=== PATIENT | female | born 2000 | race Caucasian/White ===

== ENCOUNTER 2021-06-27 20:08 | Emergency (ER) | payer MEDICAID ==
[2021-06-27 21:09] LABS: BARBITURATE SCREEN,URINE NEGATIVE (NEGATIVE); BENZODIAZEPINES SCREEN,URINE NEGATIVE (NEGATIVE); BUPRENORPHINE SCREEN,URINE NEGATIVE (NEGATIVE); METHAMPHETAMINE SCREEN, URINE NEGATIVE (NEGATIVE); THC SCREEN,URINE 50 NG/ML POSITIVE (NEGATIVE)
[2021-06-27 21:30] LABS: CHLORIDE,CL 102 mmol/L (98-107); SODIUM,NA 137 mmol/L (136-145)
[2021-06-27 21:32] LABS: ANION GAP 10.7 mmol/L (5-15)
== END 2021-06-27 21:45 | disposition home or self-care (01) ==
LOC: EDBD 20:08 → VM.ED 20:08
DX: R42 Dizziness and giddiness (principal); R00.2 Palpitations; Z72.0 Tobacco use
CPT/HCPCS: 36415; 80053; 80305-QW; 81003; 81025; 84484; 85025; 86140; 99285-25

== ENCOUNTER 2021-08-13 16:44 | Emergency (ER) | payer MEDICAID | END 2021-08-13 17:50 | disposition home or self-care (01) | LOC: VM.ED 16:44 | DX: R11.2 Nausea with vomiting, unspecified (principal) | CPT/HCPCS: 81025; 99283; 99284 ==

== ENCOUNTER 2021-12-17 22:27 | Emergency (ER) | payer MEDICAID ==
[2021-12-17 23:46] LABS: CHLORIDE,CL 106 mmol/L (98-107); SODIUM,NA 143 mmol/L (136-145)
[2021-12-17 23:47] LABS: ANION GAP 14.4 mmol/L (5-15); ESTIMATED GFR 94 mL/min (>=60)
[2021-12-17] MEDS ORDERED: Sodium Chloride 0.9% 500 ML IV ONE (23:49)
[2021-12-17] MEDS ORDERED: GI Cocktail Oral Solution 30 ML PO ONE (23:50)
[2021-12-17] MEDS ORDERED: LORazepam 0.5 MG Tab PO PRN (23:50)
== END 2021-12-18 01:31 | disposition home or self-care (01) ==
LOC: VM.ED 22:27
DX: K21.9 Gastro-esophageal reflux disease without esophagitis (principal)
CPT/HCPCS: 80053; 81001; 83605; 85025; 93005; 93010; 99284; A9270-GY; J7030

== ENCOUNTER 2022-02-05 15:49 | Emergency (ER) | payer MEDICAID ==
[2022-02-05 20:18] LABS: CHLORIDE,CL 105 mmol/L (98-107); SODIUM,NA 143 mmol/L (136-145)
[2022-02-05 20:19] LABS: ANION GAP 13.9 mmol/L (5-15); ESTIMATED GFR 108 mL/min (>=60)
[2022-02-05] MEDS ORDERED: Ketorolac 30 MG/ML SDV IM ONE (20:37)
== END 2022-02-05 21:59 | disposition home or self-care (01) ==
LOC: VM.ED 15:49
DX: R10.2 Pelvic and perineal pain (principal); E71.32 Disorders of ketone metabolism; K21.9 Gastro-esophageal reflux disease without esophagitis; Z79.899 Other long term (current) drug therapy
CPT/HCPCS: 36415; 80048; 81003; 81025; 85007; 85027; 96372; 99283; 99284; J1885

== ENCOUNTER 2022-02-06 15:09 | Emergency (ER) | payer MEDICAID | END 2022-02-06 16:06 | disposition home or self-care (01) | LOC: VM.ED 15:09 | DX: N63.20 Unspecified lump in the left breast, unspecified quadrant (principal); K21.9 Gastro-esophageal reflux disease without esophagitis; Z79.899 Other long term (current) drug therapy | CPT/HCPCS: 99283 ==

== ENCOUNTER 2022-06-29 20:00 | Emergency (ER) | payer MEDICAID ==
[2022-06-29] MEDS ORDERED: Sodium Chloride 0.9% 10 ML Syringe FLUSH PRN (20:06)
[2022-06-29] MEDS ORDERED: Lactated Ringers 1,000 ML IV ONE (20:07)
[2022-06-29] MEDS ORDERED: Ondansetron 4 MG/2 ML SDV IVPUSH ONE (20:07)
[2022-06-29 20:55] LABS: ANION GAP 15.6 mmol/L (5-15)
[2022-06-29] MEDS ORDERED: NS + KCl 20mEq/L 1,000 ML IV SCH (21:00)
[2022-06-29 21:10] LABS: BARBITURATE SCREEN,URINE NEGATIVE (NEGATIVE); BENZODIAZEPINES SCREEN,URINE NEGATIVE (NEGATIVE)
[2022-06-29 21:11] LABS: BUPRENORPHINE SCREEN,URINE NEGATIVE (NEGATIVE); METHAMPHETAMINE SCREEN, URINE NEGATIVE (NEGATIVE); THC SCREEN,URINE 50 NG/ML POSITIVE (NEGATIVE)
[2022-06-29] MEDS ORDERED: Take Home: Ondansetron 4 MG Tab.DIS, 5 Tab Pack PO ONE (23:06)
== END 2022-06-29 23:22 | disposition home or self-care (01) ==
LOC: VM.ED 20:00
DX: R11.2 Nausea with vomiting, unspecified (principal); F12.90 Cannabis use, unspecified, uncomplicated; F10.10 Alcohol abuse, uncomplicated; E87.6 Hypokalemia; K21.9 Gastro-esophageal reflux disease without esophagitis; Y90.3 Blood alcohol level of 60-79 mg/100 ml; Z79.899 Other long term (current) drug therapy
CPT/HCPCS: 80053; 80305-QW; 80307; 81003; 81025; 83735; 84100; 85025; 96361; 96365; 96366; 96375; 99284; 99284-25; J2405; J3480; J7120; Q0162

== ENCOUNTER 2023-09-22 11:41 | Emergency (ER) | payer MEDICAID ==
[2023-09-22 12:12] LABS: APPEARANCE,URINE TURBID (CLEAR); BILIRUBIN,URINE SMALL (NEGATIVE); COLOR,URINE RED (YELLOW); GLUCOSE,URINE NEGATIVE (NEGATIVE); KETONES,URINE 15 mg/dL (NEGATIVE); LEUKOCYTE ESTERASE,URINE MODERATE (NEGATIVE); NITRITE,URINE NEGATIVE (NEGATIVE); OCCULT BLOOD,URINE LARGE (NEGATIVE); PH,URINE 7.5 (5.0-8.0); PROTEIN,URINE >=300 mg/dL (NEGATIVE)
[2023-09-22 12:18] LABS: BACTERIA,URINE FEW /HPF (NOT SEEN); RBC,URINE 75-100 /HPF (NOT SEEN); SQUAMOUS EPITHELIAL CELLS,UR RARE /HPF (NOT SEEN)
[2023-09-22] MEDS: Phenazopyridine 95 MG Tab PO ONE (12:52)
[2023-09-22] MEDS: Cephalexin 500 MG Cap PO ONE (12:53)
== END 2023-09-22 13:10 | disposition home or self-care (01) ==
LOC: VM.ED 11:41
DX: N39.0 Urinary tract infection, site not specified (principal); K21.9 Gastro-esophageal reflux disease without esophagitis; Z79.899 Other long term (current) drug therapy
CPT/HCPCS: 81001; 81025; 87086; 99284; A9270-GY